=== PATIENT | female | born 1990 | race Caucasian/White ===

== ENCOUNTER 2018-06-01 23:52 | Emergency (ER) | payer BC ==
[2018-06-01 23:57] VITALS: TEMP 98.1
[2018-06-02 02:11] LABS: Basophils % (A) 0 %; Eosinophils # (A) 0.3 k/uL (0-0.7); Eosinophils % (A) 3 %; HCT 35.2 % (34.0-46.0); HGB 12.1 gm/dL (11.4-16.0); Lymphocytes # (A) 2.4 k/uL (1.0-4.8); Lymphocytes % (A) 20 %; MCH 28.9 pg (25.0-35.0); MCHC 34.3 g/dL (31.0-37.0); MCV 84.2 fL (80.0-100.0); Mean Platelet Volume 7.7; Monocytes # (A) 0.5 k/uL (0-1.0); Monocytes % (A) 5 %; Neutrophils # (A) 8.1 k/uL (1.3-7.7); Neutrophils % (A) 70 %; Platelet Count 182 k/uL (150-450); RBC 4.18 m/uL (3.80-5.40); RDW 13.7 % (11.5-15.5); WBC 11.6 k/uL (3.8-10.6)
--- NOTE | 2018-06-02 03:03 | ED ---
General Adult HPI - General Source: patient, RN notes reviewed Mode of arrival: ambulatory Limitations: no limitations <Ed Sanabria P - Last Filed: 06/02/18 03:07> <Romelia Das P - Last Filed: 06/02/18 05:39> - General Chief complaint: ENT Stated complaint: Facial Swelling Time Seen by Provider: 06/02/18 00:25 - History of Present Illness Initial comments: 28-year-old female patient who is 15 months presents to the emergency department for bilateral facial swelling 3 days. Patient states this in pain started 3 days ago. Patient states she has no difficulty opening her mouth. She denies any sore throat. Patient did see her dentist for this who did not think it was TMJ. Patient also saw her primary care provider who tested her for mono and strep which were both negative. Patient states they ordered a CBC but she did not want to wait for the results of this. Patient states the swelling is mostly anterior to the ears as well as inferior to her ears. She denies any pain behind the ears are within the ears. Patient denies any fevers , rashes, cough, rhinorrhea. Patient states she is up-to-date on all childhood immunizations. Patient has no other complaints at this time including shortness of breath, chest pain, abdominal pain, nausea or vomiting, headache, or visual changes. (Ed Sanabria) - Related Data Home Medications Medication Instructions Recorded Confirmed Melatonin 3 mg PO HS PRN 03/12/15 03/12/15 Vit No.124/Iron/Folic 1 each PO DAILY 03/12/15 03/12/15 [ Vitamin Tablet] Ubidecarenone [Co Q-10] 100 mg PO DAILY 03/12/15 03/12/15 Previous Rx's Medication Instructions Recorded Famotidine [Pepcid] 20 mg PO BID #10 tablet 03/12/15 diphenhydrAMINE [Benadryl] 50 mg PO HS PRN #5 capsule 03/12/15 predniSONE 50 mg PO DAILY #5 tab 03/12/15 Allergies Allergy/AdvReac Type Severity Reaction Status Date / Time No Known Allergies Allergy Verified 06/01/18 23:57 Review of Systems ROS Other: All systems not noted in ROS Statement are negative. <Ed Sanabria - Last Filed: 06/02/18 03:07> ROS Other: All systems not noted in ROS Statement are negative. <Romelia Das P - Last Filed: 06/02/18 05:39> ROS Statement: Those systems with pertinent positive or pertinent negative responses have been documented in the HPI. Past Medical History Past Medical History: No Reported History Additional Past Medical History / Comment(s): endometriosis History of Any Multi-Drug Resistant Organisms: None Reported Past Surgical History: Tonsillectomy Additional Past Surgical History / Comment(s): cervial sx Past Psychological History: No Psychological Hx Reported Smoking Status: Never smoker Past Alcohol Use History: None Reported Past Drug Use History: None Reported <Ed Sanabria P - Last Filed: 06/02/18 03:07> General Exam Limitations: no limitations General appearance: alert, in no apparent distress Head exam: Present: atraumatic, normocephalic, normal inspection Eye exam: Present: normal appearance, PERRL, EOMI. Absent: scleral icterus, conjunctival injection, periorbital swelling ENT exam: Present: normal exam, normal oropharynx (Uvula midline, no tonsillar exudates noted bilaterally. Non-erythematous), mucous membranes moist, TM's normal bilaterally (Erythematous, nonopacified, no perforations noted.), normal external ear exam (No tenderness to percussion or palpation of the mastoid processes bilaterally), other (Swelling noted anterior to the ears possible lymphadenopathy. Parotid gland does not seem to be enlarged.) Neck exam: Present: normal inspection, full ROM. Absent: tenderness, meningismus, lymphadenopathy Respiratory exam: Present: normal lung sounds bilaterally. Absent: respiratory distress, wheezes, rales, rhonchi, stridor Cardiovascular Exam: Present: regular rate, normal rhythm, normal heart sounds. Absent: systolic murmur, diastolic murmur, rubs, gallop, clicks Neurological exam: Present: alert, oriented X3, CN II-XII intact Psychiatric exam: Present: normal affect, normal mood <Ed Sanabria P - Last Filed: 06/02/18 03:07> Vital Signs 06/01/18 06/02/18 23:55 03:17 Temperature 98.1 F 98.1 F Pulse Rate 88 82 Respiratory 18 16 Rate Blood Pressure 119/59 103/66 O2 Sat by Pulse 100 98 Oximetry Medical Decision Making - Lab Data Result diagrams: 06/02/18 02:00 <Ed Sanabria P - Last Filed: 06/02/18 03:07> - Lab Data Result diagrams: 06/02/18 02:00 <Romelia Das - Last Filed: 06/02/18 05:39> - Medical Decision Making 28-year-old female presents to the emergency department for bilateral facial swelling 3 days. Patient states pain is also accompanied with this. Patient is up-to-date on childhood immunizations and denies any fevers, rash, cough, rhinorrhea. Patient states she is feeling otherwise healthy. Patient saw dentist and her primary for this and had a negative mono and strep ordered. This is unlikely to be sialolithiasis or sialoadenitis as it is bilateral. Patient could have a viral infection causing lymphadenopathy. She denies having any close contact with cats. CBC here in the emergency department shows a white count of 11 and is unremarkable. Patient also requested heart sounds. She denies any abdominal pain, vaginal bleeding or discharge, or cramping. Discussed case with Dr. Das. Patient will follow up with her primary care provider tomorrow. Patient states she would also like to follow- up with Dr. Warner ENT as she has seen him in the past for her tonsils. ( Ed Sanabria) I was available for consultation in the emergency department. The history and physical exam were done by the midlevel provider. I was consulted for this patient's care. I reviewed the case with the midlevel provider and based on their presentation of the patient, I agree with the assessment, medical decision making and plan of care as documented. (Romelia Das) - Lab Data Lab Results 06/02/18 Range/Units 02:00 WBC 11.6 H (3.8-10.6) k/uL RBC 4.18 (3.80-5.40) m/uL Hgb 12.1 (11.4-16.0) gm/dL Hct 35.2 (34.0-46.0) % MCV 84.2 (80.0-100.0) fL MCH 28.9 (25.0-35.0) pg MCHC 34.3 (31.0-37.0) g/dL RDW 13.7 (11.5-15.5) % Plt Count 182 (150-450) k/uL Neutrophils % 70 % Lymphocytes % 20 % Monocytes % 5 % Eosinophils % 3 % Basophils % 0 % Neutrophils # 8.1 H (1.3-7.7) k/uL Lymphocytes # 2.4 (1.0-4.8) k/uL Monocytes # 0.5 (0-1.0) k/uL Eosinophils # 0.3 (0-0.7) k/uL Basophils # 0.0 (0-0.2) k/uL Disposition Is patient prescribed a controlled substance at d/c from ED?: No Time of Disposition: 02:57 <Ed Sanabria P - Last Filed: 06/02/18 03:07> <Romelia Das P - Last Filed: 06/02/18 05:39> Clinical Impression: Facial swelling, Lymphadenopathy Disposition: HOME SELF-CARE Condition: Good Instructions: Lymphadenopathy (ED) Additional Instructions: Please follow up with primary care or ENT tomorrow. Please return immediately to the emergency department if you have any worsening symptoms. Referrals: Balaji Mendez III, MD [Primary Care Provider] - 1-2 days Jun Warner MD [STAFF PHYSICIAN] - 1-2 days
[2018-06-02 03:23] VITALS: BP 103/66; PULSE 82; RESP 16
== END 2018-06-02 03:17 | disposition home or self-care (01) ==
LOC: EC 23:52
DX: O99.89 Other specified diseases and conditions complicating pregnancy, childbirth and the puerperium (principal); R59.0 Localized enlarged lymph nodes; Z3A.15 15 weeks gestation of pregnancy; Z79.899 Other long term (current) drug therapy
CPT/HCPCS: 36415; 85025; 99283

== ENCOUNTER → 2025-02-09 | Outpatient (CLI) | payer BC ==
--- NOTE | 2025-02-09 10:54 | US ---
EXAMINATION TYPE: US thyroid st tissue head/neck DATE OF EXAM: 02/09/2025 COMPARISON: NONE CLINICAL INDICATION: Female, 35 years old with history of E03.9 HYPOTHYROIDISM, UNSPECIFIED; Hypothyr oidism TECHNIQUE: Grayscale and color Doppler imaging of the thyroid gland. FINDINGS: GLAND SIZE: Right Lobe: 5.7 x 1.7 x 1.0 cm. ?Slightly large Overall Parenchyma: homogeneous Left Lobe: 5.7 x 1.6 x 1.0 cm,. ?Slightly large Overall Parenchyma: homogeneous Isthmus Thickness: 0.24 cm NODULES RIGHT: # of nodules measured on right: 0 LEFT: # of nodules measured on left: 1 less than 5 mm nodule seen, not fully measured. This is hy poechoic and appearance and appears cystic. TR 1. ISTHMUS: # of nodules measured in the isthmus: 0 Bilateral neck scanned, no evidence of lymphadenopathy. IMPRESSION: Slightly enlarged thyroid gland with subcentimeter TR 1 left thyroid lobe nodule. Highest TI-RADS level nodule reported: ACR TI-RADS LEVEL: TI-RADS 1 - BENIGN: No FNA TI-RADS assessment score and recommendation for follow-up based on appropriate scoring and treatment protocols. TR1 Benign No FNA TR2 Not suspicious No FNA TR3: If nodule size is ? 2.5 cm, FNA is recommended. If nodule size is ? 1.5 cm, follow-up imaging at 1, 3, and 5 years is recommended. TR4: If nodule size is ? 1.5 cm, FNA is recommended. If nodule size is ? 1.0 cm, follow-up imaging at 1, 2, 3, and 5 years is recommended. TR5: If nodule size is ? 1.0 cm, FNA is recommended. If nodule size is ? 0.5 cm, annual follow-up for up to 5 years is recommended. TR 1 thyroid nodules have a 0.3 % risk of malignancy. TR 2 thyroid nodules have a 1.5 % risk of malignancy. TR 3 thyroid nodules have a 4.8 % risk of malignancy. TR 4 thyroid nodules have a 9.1 % risk of malignancy. TR 5 thyroid nodules have a 35 % risk of malignancy. [facility], , 02/09/2025 10:51 AM
== END | disposition home or self-care (01) ==
LOC: RADUSWWP 10:28
PROVIDERS: ATTEND Internal Medicine
DX: E03.9 Hypothyroidism, unspecified (principal)
CPT/HCPCS: 76536